=== PATIENT | male | born 1980 | race Caucasian/White ===

== ENCOUNTER 2016-04-30 15:43 | Emergency (ER) | payer MEDICAID ==
--- NOTE | 2016-04-30 16:06 | EDPHY ---
[id number] 4d CHIEF COMPLAINT: Suicidal HISTORY OF PRESENT ILLNESS: 36-year-old male presents to the emergency department on an M1 hold feeling depressed and suicidal. The patient has a history of mental illness and has been compliant with his medications. He states for the last 3 years he has felt really bad. The patient saw Dr. Noriega today. He explained that if he had had a gun he may have shot himself. He apparently begged his father 2 days ago for a gun so he could kill himself. The patient continues to feel suicidal. He denies homicidal ideation. He does have auditory hallucinations. He denies visual hallucinations. He has been hospitalized for mental illness but not for several years. He occasionally uses marijuana and alcohol. He has not had any of this recently. He denies chest pain or difficulty breathing. Denies abdominal pain. He lives independently in [place] and his parents live close by. REVIEW OF SYSTEMS: Constitutional: No fever, no chills. Eyes: No double or blurry vision. ENT: No sore throat. Respiratory: No cough, no shortness of breath. Cardiac: No chest pain. Gastrointestinal: No abdominal pain, vomiting or diarrhea. Genitourinary: No dysuria. Musculoskeletal: No neck or back pain. Skin: No rashes. Neurological: No headache. (Varsha Mccormack) Past Medical/Surgical History: Mental illness (NoheliaVarsha muñoz) Social History: Single, lives alone in [place] (EastonVarsha M) Physical Exam: General Appearance: Alert, no distress. No physical signs of trauma to his head. Does not smell of alcohol. Eyes: Pupils equal and round. Extraocular motions are all intact. ENT: Mouth: Mucous membranes moist. Respiratory: No wheezing, rhonchi, or rales, lungs are clear to auscultation. Cardiovascular: Regular rate and rhythm. Gastrointestinal: Abdomen is soft and nontender, no masses, no rebound or guarding, bowel sounds normal. Neurological: Alert and oriented x 3, cranial nerves II through XII grossly intact Skin: Warm and dry, no rashes. Musculoskeletal: Nontender to palpate along the cervical, thoracic or lumbar spine. Neck is supple. Extremities: Full range of motion and no peripheral edema. Psychiatric: Patient is oriented X 3, there is no agitation. (Varsha Mccormack) Constitutional: Initial Vital Signs Temperature (C) 36.6 C 04/30/16 15:59 Heart Rate 76 04/30/16 15:59 Respiratory Rate 16 04/30/16 15:59 Blood Pressure 142/77 H 04/30/16 15:59 O2 Sat (%) 95 04/30/16 15:59 O2 Delivery Mode Room Air Allergies/Adverse Reactions: No Known Allergies Allergy (Unverified 04/30/16 19:35) Home Medications: Medication Instructions Recorded Depakote 1,500 mg HS 04/30/16 Klonopin 0.5 mg 04/30/16 Seroquel 150 mg HS 04/30/16 Zoloft 100mg (*) HS 04/30/16 Medical Decision Making ED Course/Re-evaluation: 36-year-old male presents on M1 hold with suicidal ideation. The M1 hold is in fact invalid since it is labeled with his neck name, Nate and therefore I placed him on a detainer. He is medically cleared and is awaiting mental health evaluation. (Varsha Mccormack) 23:30 Care assumed by me pending placement. PT with SI, wanting to shoot self. Tried to buy a gun. 0330 Pt accepted in transfer to [facility] by Dr Rich. EMTALA is completed (Arturo Butcher) Patient remained stable. He has been evaluated by mental health. They would like to admit the patient. (Carlos Enrique Cintron) Differential Diagnosis: Depression including functional and major depression, situational depression, medication side effect, drugs and alcohol abuse. (Varsha Mccormack) Care Turn Over: Care will be turned over to Dr. Cintron for disposition and plan. (Varsha Mccormack) Care to Dr. Butcher at midnight (Carlos Enrique Cintron) - Data Points Laboratory Results: Laboratory Results 04/30/16 16:02 04/30/16 16:02 Departure - Departure Disposition: Other Psych, Not [place] Clinical Impression: Depression, Suicidal ideation Condition: Good Referrals: NONE *PRIMARY CARE P,. [Primary Care Provider] - As per Instructions
[2016-04-30 16:13] LABS: % IMMATURE GRANULYOCYTES 0.4 % (0.0-1.1); ABSOLUTE IMMATURE GRANULOCYTES 0.04 10^3/uL (0.00-0.10); ADD DIFF? NO; ADD MORPH? NO; ADD SCAN? NO; ATYPICAL LYMPHOCYTE FLAG 0 (0-99); FRAGMENT RBC FLAG 0 (0-99); HEMATOCRIT 45.6 % (40.0-51.0); HEMOGLOBIN 16.3 g/dL (13.7-17.5); LEFT SHIFT FLG 0 (0-99); LIPEMIA HEMOLYSIS FLAG 90 (0-99); MEAN CELL HEMOGLOBIN 31.2 pg (27.9-34.1); MEAN CELL HEMOGLOBIN CONCENTR. 35.7 g/dL (32.4-36.7); MEAN CELL VOLUME 87.4 fL (81.5-99.8); MEAN PLATELET VOLUME 10.8 fL (8.7-11.7); PLATELET CLUMPS FLAG 0 (0-99); PLATELET COUNT 217 10^3/uL (150-400); RED BLOOD CELL COUNT 5.22 10^6/uL (4.40-6.38); RED CELL DISTRIBUTION WIDTH 12.3 % (11.5-15.2)
[2016-04-30 16:30] LABS: ANION GAP 12 mEq/L (8-16); CALCIUM 9.1 mg/dL (8.5-10.4); CARBON DIOXIDE 22 mEq/l (22-31); CHLORIDE 106 mEq/L (97-110); CREATININE 0.9 mg/dL (0.7-1.3); GLOMERULAR FILTRATION RATE > 60; GLUCOSE 88 mg/dL (70-100); POTASSIUM 4.4 mEq/L (3.5-5.2); SODIUM 140 mEq/L (134-144)
[2016-04-30 17:09] LABS: PHENCYCLIDINE URINE BCH < 6 ng/ml (NEGATIVE); TETRAHYDROCANNABINOL URINE < 5 ng/mL (NEGATIVE)
[2016-04-30 17:10] LABS: PHENCYCLIDINE URINE BCH NEGATIVE (NEGATIVE); TETRAHYDROCANNABINOL URINE NEGATIVE (NEGATIVE)
[2016-04-30 19:44] LABS: ETHANOL SERUM < 10 mg/dL (0-10)
[2016-05-01 00:04] VITALS: RESP 16
[2016-05-01 03:19] VITALS: BP 111/50; PULSE 61; TEMP 97.7; O2SAT 95
== END 2016-05-01 03:46 ==
LOC: EDUNIT#
DX: R45.851 Suicidal ideations (principal); F32.9 Major depressive disorder, single episode, unspecified
CPT/HCPCS: 80307; G0480